=== PATIENT | female | born 1975 | race African-American/Black ===

== ENCOUNTER 2016-11-01 13:36 | Emergency (ER) | payer BC ==
[~2016-11-01] VITALS: Ht 180.3 cm; Wt 188.5 kg
[2016-11-01 14:09] LABS: HEMATOCRIT 36.5 % (36.0-46.0); MCH 28.6 PG (29.0-34.0); MCHC 32.9 G/DL (30.0-36.0); MCV 87.1 FL (83-99); MEAN PLAT.VOLUME 9.4 uM^3 (9.5-12.4); PLATELET COUNT 279 K/uL (156-360); RBC DIS.WIDTH-CV 12.4 % (11.8-14.6); RBC DIS.WIDTH-SD 39.6 % (39-53); RED BLOOD COUNT 4.19 M/uL (3.80-5.20); WHITE BLOOD COUNT 9.8 K/uL (4.1-10.2)
[2016-11-01 14:21] LABS: CHLORIDE 106 mEq/L (99-109); SODIUM 138 mEq/L (136-147)
[2016-11-01 14:23] LABS: GLUCOSE 114 mg/dL (70-99)
[2016-11-01 14:24] LABS: ANION GAP 12 MEQ/L (2-14)
[2016-11-01 14:25] LABS: TOTAL BILIRUBIN 1.3 mg/dL (0.0-1.0)
[2016-11-01 14:27] LABS: ALKALINE PHOSPHATASE 67 IU/L (3-129); GFR ESTIMATE (CALCULATED) > 59 mL/min/
[2016-11-01 14:28] LABS: LIPASE 13 U/L (1.0-51.0); UREA NITROGEN (BUN) 11 mg/dL (9-23)
[2016-11-01 14:38] LABS: QUANTITATIVE HCG < 4.0 MIU/ML
[2016-11-01 15:19] LABS: ADD MIUA? YES; BILIRUBIN NEGATIVE; BLOOD LARGE; COLOR AMBER ((YELLOW)); GLUCOSE (STRIP) NEGATIVE; KETONES 5; LEUKOCYTES MODERATE; NITRITE NEGATIVE; PROTEIN (STRIP) 100; SPECIFIC GRAVITY 1.027 (1.000-1.030); UROBILINOGEN 0.2 MG/DL (0.2-1.0)
[2016-11-01 15:56] LABS: BACTERIA 2+ /HPF; EPITHELIAL CELLS 1+ /HPF; MUCUS TRACE /LPF; RED BLOOD CELLS TNTC /HPF (0-5); WHITE BLOOD CELLS TNTC /HPF (0-5)
[2016-11-01 15:57] LABS: AMORPHOUS URATES CRYSTALS 1+; CASTS NONE SEEN /LPF; CRYSTALS PRESENT
[2016-11-01] MEDS ORDERED: KEFLEX500 MG PO (16:38)
[2016-11-01 16:57] VITALS: BP 125/98
== END 2016-11-01 16:58 | disposition home or self-care (01) ==
LOC: EME 13:36
PROVIDERS: Physician Assistant
DX: D25.9 Leiomyoma of uterus, unspecified (principal); N39.0 Urinary tract infection, site not specified; N93.9 Abnormal uterine and vaginal bleeding, unspecified; E07.9 Disorder of thyroid, unspecified; Z87.891 Personal history of nicotine dependence
CPT/HCPCS: 76856; 80053; 81003; 82550; 82553; 83690; 84702; 85027; 87086; 99281; 99284

== ENCOUNTER 2017-03-16 14:05 | Inpatient (IN) | payer BC, OTHER ==
[~2017-03-16] VITALS: Ht 180.3 cm; Wt 179.2 kg
[~2017-03-16 14:05] MED LIST: ALLOPURINOL300 MG PO; ATORVASTATIN CA10 MG PO; COMPAZINE10 MG PO; DECADRON2 MG PO; KEFLEX500 MG PO; LEVOTHYROXINE75 MCG PO; ZESTORETIC 10-1 EAC1 PO; ZOFRAN8 MG PO
[2017-03-16 14:58] LABS: HEMATOCRIT 21.6 % (36.0-46.0); HEMOGLOBIN 7.3 G/DL (11.9-15.5); IMM.RETIC FRACTION 0 % (3-19); MCHC 33.8 G/DL (30.0-36.0); MCV 88.9 FL (83-99); PLATELET COUNT 143 K/uL (156-360); RBC DIS.WIDTH-CV 17.8 % (11.8-14.6); RED BLOOD COUNT 2.43 M/uL (3.80-5.20); RETIC HGB EQUIVALENT 42.3 (28-36); RETICULOCYTE COUNT 0.3 % (0.5-1.8); WHITE BLOOD COUNT 5.1 K/uL (4.1-10.2)
[2017-03-16 15:12] LABS: CHLORIDE 103 mEq/L (99-109); POTASSIUM 3.3 mEq/L (3.7-5.4); SODIUM 137 mEq/L (136-147)
[2017-03-16 15:13] LABS: GLUCOSE 154 mg/dL (70-99)
[2017-03-16 15:17] LABS: CREATININE 1.5 mg/dL (0.6-1.3); GFR ESTIMATE (CALCULATED) 49 mL/min/
[2017-03-16 15:18] LABS: UREA NITROGEN (BUN) 21 mg/dL (9-23)
[2017-03-16 16:21] LABS: ANISOCYTOSIS 2+; BASOPHIL (%) 0.6 % (0-1); EOSINOPHIL (%) 0.4 % (0-5); HYPOCHROMASIA 1+; IMMATURE GRANULOCYTE (%) 3.3 % (0.0-0.7); LYMPHOCYTE (%) 19.6 % (15-42); MACROCYTES 1+; MICROCYTOSIS 1+; MONOCYTE (%) 0.2 % (3-12); NEUTROPHIL (%) 75.9 % (45-76); NEUTROPHIL COUNT 3.9 K/uL (1.8-6.4); TEAR DROP CELLS 1+
[2017-03-16 18:45] LABS: TROP-I INTERPRETATION NEGATIVE; TROPONIN-I 0.04 ng/mL (0.0-0.30)
[2017-03-16] MEDS ORDERED: SENNA S TABLET1 EACH PO (18:56)
[2017-03-16 20:01] VITALS: BP 77/50
[2017-03-16 20:18] VITALS: BP 81/51
[2017-03-16 21:18] VITALS: BP 106/87
[2017-03-16 21:28] VITALS: BP 106/87
[2017-03-16 21:45] VITALS: BP 113/82
[2017-03-16 22:32] VITALS: BP 129/74
[2017-03-16 23:17] LABS: THYROTROPIN (TSH) 3.2 MIU/L (0.4-5.5)
[2017-03-17] VITALS (12 sets, daily range): BP systolic 121–149; BP diastolic 76–101
[2017-03-17 00:34] LABS: APPEARANCE CLOUDY ((CLEAR)); BILIRUBIN NEGATIVE; BLOOD MODERATE; COLOR AMBER ((YELLOW)); GLUCOSE (STRIP) 50; KETONES NEGATIVE; LEUKOCYTES SMALL; NITRITE NEGATIVE; PROTEIN (STRIP) 100; SPECIFIC GRAVITY 1.019 (1.000-1.030)
[2017-03-17 01:02] LABS: WHITE BLOOD CELLS 30-40 /HPF (0-5)
[2017-03-17 01:03] LABS: BACTERIA 3+ /HPF; EPITHELIAL CELLS 2+ /HPF; HYALINE CASTS 0-5 /LPF; MUCUS 3+ /LPF; UCUL ADDED? YES
[2017-03-17 02:04] LABS: TROP-I INTERPRETATION POSITIVE
[2017-03-17 02:06] LABS: TROPONIN-I 0.62 ng/mL (0.0-0.30)
[2017-03-17 06:41] LABS: HEMATOCRIT 22.7 % (36.0-46.0); HEMOGLOBIN 7.7 G/DL (11.9-15.5); MCH 29.5 PG (29.0-34.0); MCHC 33.9 G/DL (30.0-36.0); PLATELET COUNT 104 K/uL (156-360); RBC DIS.WIDTH-CV 17.8 % (11.8-14.6); RBC DIS.WIDTH-SD 55.4 % (39-53); RED BLOOD COUNT 2.61 M/uL (3.80-5.20); WHITE BLOOD COUNT 4.2 K/uL (4.1-10.2)
[2017-03-17 07:11] LABS: CHLORIDE 107 MEQ/L (99-109); CREATININE 1.8 MG/DL (0.6-1.3); GFR ESTIMATE (CALCULATED) 40 mL/min/; SODIUM 139 MEQ/L (136-147); UREA NITROGEN (BUN) 29 mg/dL (9-23)
[2017-03-17 07:14] LABS: GLUCOSE 91 mg/dL (70-99); POTASSIUM 4.2 MEQ/L (3.7-5.4)
[2017-03-17 12:54] LABS: TROP-I INTERPRETATION POSITIVE
[2017-03-18 03:41] VITALS: BP 138/78
[2017-03-18 05:26] LABS: UR CREATININE CONCENTRATION 157.6 MG/DL
[2017-03-18 06:07] LABS: HEMATOCRIT 26.3 % (36.0-46.0); HEMOGLOBIN 8.6 G/DL (11.9-15.5); MCH 28.7 PG (29.0-34.0); MCHC 32.7 G/DL (30.0-36.0); MCV 87.7 FL (83-99); PLATELET COUNT 77 K/uL (156-360); RBC DIS.WIDTH-CV 17.2 % (11.8-14.6); RBC DIS.WIDTH-SD 53.3 % (39-53); WHITE BLOOD COUNT 2.9 K/uL (4.1-10.2)
[2017-03-18 06:22] LABS: TROP-I INTERPRETATION INDETERMINATE; TROPONIN-I 0.46 ng/mL (0.0-0.30)
[2017-03-18 06:48] LABS: CHLORIDE 109 MEQ/L (99-109); CREATININE 1.8 MG/DL (0.6-1.3); GFR ESTIMATE (CALCULATED) 40 mL/min/; GLUCOSE 94 mg/dL (70-99); MAGNESIUM 1.6 mg/dl (1.3-2.7); SODIUM 138 MEQ/L (136-147); UREA NITROGEN (BUN) 28 mg/dL (9-23); URIC ACID 9.4 mg/dL (3.1-9.2)
[2017-03-18 07:00] LABS: BASOPHIL (%) 0.7 % (0-1); EOSINOPHIL (%) 0.3 % (0-5); IMMATURE GRANULOCYTE (%) 3.5 % (0.0-0.7); LYMPHOCYTE (%) 56.3 % (15-42); LYMPHOCYTE COUNT 1.6 K/uL (1.0-2.8); MONOCYTE (%) 0.3 % (3-12); NEUTROPHIL (%) 38.9 % (45-76); NEUTROPHIL COUNT 1.1 K/uL (1.8-6.4)
[2017-03-18 07:16] VITALS: BP 137/89
[2017-03-18 11:42] VITALS: BP 177/106
[2017-03-18 19:23] VITALS: BP 131/87
[2017-03-18 23:23] VITALS: BP 128/81
[2017-03-19 04:57] VITALS: BP 131/74
[2017-03-19 05:14] LABS: HEMATOCRIT 25.1 % (36.0-46.0); HEMOGLOBIN 8.5 G/DL (11.9-15.5); MCH 29.6 PG (29.0-34.0); MCHC 33.9 G/DL (30.0-36.0); MCV 87.5 FL (83-99); RBC DIS.WIDTH-CV 16.6 % (11.8-14.6); RBC DIS.WIDTH-SD 51.8 % (39-53); RED BLOOD COUNT 2.87 M/uL (3.80-5.20)
[2017-03-19 05:15] LABS: WHITE BLOOD COUNT 1.8 K/uL (4.1-10.2)
[2017-03-19 05:21] LABS: CHLORIDE 110 mEq/L (99-109); POTASSIUM 3.9 mEq/L (3.7-5.4); SODIUM 138 mEq/L (136-147)
[2017-03-19 05:23] LABS: GLUCOSE 92 mg/dL (70-99)
[2017-03-19 05:27] LABS: CREATININE 1.9 mg/dL (0.6-1.3); GFR ESTIMATE (CALCULATED) 37 mL/min/
[2017-03-19 05:28] LABS: UREA NITROGEN (BUN) 29 mg/dL (9-23)
[2017-03-19 06:38] LABS: BASOPHIL (%) 1.1 % (0-1); EOSINOPHIL (%) 0 % (0-5); IMM.PLATELET FRACTION 1.9 (1-7); IMMATURE GRANULOCYTE (%) 0.6 % (0.0-0.7); LYMPHOCYTE (%) 85.6 % (15-42); LYMPHOCYTE COUNT 1.6 K/uL (1.0-2.8); MONOCYTE (%) 0.6 % (3-12); NEUTROPHIL (%) 12.1 % (45-76); NEUTROPHIL COUNT 0.2 K/uL (1.8-6.4); PLAT.SUFFICIENCY DECREASED
[2017-03-19 07:01] LABS: PLATELET COUNT 52 K/uL (156-360)
[2017-03-19 08:00] VITALS: BP 127/71
[2017-03-19 11:04] VITALS: BP 131/73
[2017-03-19] MEDS ORDERED: ULORIC40 MG PO (12:01)
[2017-03-19] MEDS ORDERED: CEFTRIAXONE1 G1 IV (12:01)
[2017-03-19] MEDS ORDERED: NIFEDIPINE ER30 MG PO (12:01)
[2017-03-19 14:39] LABS: HEMATOCRIT 27.6 % (36.0-46.0); HEMOGLOBIN 9.3 G/DL (11.9-15.5); MCH 29.7 PG (29.0-34.0); MCHC 33.7 G/DL (30.0-36.0); MCV 88.2 FL (83-99); PLATELET COUNT 58 K/uL (156-360); RBC DIS.WIDTH-CV 16.7 % (11.8-14.6); RBC DIS.WIDTH-SD 52.2 % (39-53); RED BLOOD COUNT 3.13 M/uL (3.80-5.20); WHITE BLOOD COUNT 2.1 K/uL (4.1-10.2)
[2017-03-19 15:53] VITALS: BP 127/81
[2017-03-19 16:09] LABS: ABS NEUTROPHIL COUNT 0.1; ANISOCYTOSIS 1+; ATYPICAL LYMPHOCYTE 12.3 %; BASOPHILS 1.8 %; EOSINOPHIL ABS CT 0; LYMPHOCYTES 78.9 % (15.0-45.0); OVALOCYTES 1+; PLAT.SUFFICIENCY VERY DECREASED
== END 2017-03-19 18:10 | disposition short-term general hospital (02) | DRG 302 ==
LOC: EME 14:05 → 4EAST 21:36 → 5EAST 21:36 → EDOF 21:36 → ENRESERV 21:38 → 5EAST 22:45 → ENRESERV 03-18 17:47 → 4EAST 03-18 19:22
PROVIDERS: Emergency Medicine Emergency Medical Services; Hospitalist; Internal Medicine Cardiovascular Disease; Internal Medicine Nephrology; Internal Medicine Pulmonary Disease; Student in an Organized Health Care Education/Training Program
PROC: 30233N1 Transfusion of Nonautologous Red Blood Cells into Peripheral Vein, Percutaneous Approach (ICD-10-PCS; principal; 2017-03-16)
DX: I51.3 Intracardiac thrombosis, not elsewhere classified (principal); I26.99 Other pulmonary embolism without acute cor pulmonale; I27.20 Pulmonary hypertension, unspecified; I82.411 Acute embolism and thrombosis of right femoral vein; I82.431 Acute embolism and thrombosis of right popliteal vein; C53.9 Malignant neoplasm of cervix uteri, unspecified; N17.9 Acute kidney failure, unspecified; C78.7 Secondary malignant neoplasm of liver and intrahepatic bile duct; C79.51 Secondary malignant neoplasm of bone; D61.818 Other pancytopenia; D64.81 Anemia due to antineoplastic chemotherapy; E66.9 Obesity, unspecified; N39.0 Urinary tract infection, site not specified; E03.9 Hypothyroidism, unspecified; E78.5 Hyperlipidemia, unspecified; Z68.43 Body mass index [BMI] 50.0-59.9, adult; I10 Essential (primary) hypertension; I95.1 Orthostatic hypotension; E86.0 Dehydration; N18.3 Chronic kidney disease, stage 3 (moderate); T45.1X5A Adverse effect of antineoplastic and immunosuppressive drugs, initial encounter; I12.9 Hypertensive chronic kidney disease with stage 1 through stage 4 chronic kidney disease, or unspecified chronic kidney disease; E87.2 Acidosis; I36.1 Nonrheumatic tricuspid (valve) insufficiency
CPT/HCPCS: 71010; 76770; 78582; 80048; 81003; 82272; 82533 91; 82570; 82948; 83735; 84156; 84443; 84484; 84550; 85025; 85025 91; 85027; 85046; 85520; 85730; 86850; 86900; 86901; 86920; 87040; 87077; 87086; 87186; 93005; 93306; 93970; 99281; 99285; A9540; A9567; J0696; J1650; J2405; J7030; J7040; P9016; S0028

== ENCOUNTER → 2017-08-13 | Outpatient (CLI) | payer BC, OTHER ==
[~2017-08-13] MED LIST changes: +CEFTRIAXONE1 G1 IV; +NIFEDIPINE ER30 MG PO; +SENNA S TABLET1 EACH PO; +ULORIC40 MG PO
== END | disposition home or self-care (01) ==
LOC: RAD 13:22
DX: C79.51 Secondary malignant neoplasm of bone (principal); R91.8 Other nonspecific abnormal finding of lung field; R59.0 Localized enlarged lymph nodes; R16.0 Hepatomegaly, not elsewhere classified; K80.20 Calculus of gallbladder without cholecystitis without obstruction
CPT/HCPCS: 71260; 74177

== ENCOUNTER 2017-10-02 12:22 | Inpatient (IN) | payer BC, OTHER ==
[~2017-10-02] VITALS: Ht 180.3 cm; Wt 140.0 kg
[~2017-10-02 12:22] MED LIST changes: +DURAGESIC12 MCG TD
[2017-10-02 13:59] LABS: ALBUMIN 3.3 g/dL (3.2-4.8); CHLORIDE 97 mEq/L (99-109)
[2017-10-02 14:00] LABS: BASOPHIL (%) 0.3 % (0-1); EOSINOPHIL (%) 2.4 % (0-5); EOSINOPHIL COUNT 0.2 K/uL (0-0.3); HEMATOCRIT 16.1 % (36.0-46.0); HEMOGLOBIN 5.2 G/DL (11.9-15.5); IMMATURE GRANULOCYTE (%) 0.5 % (0.0-0.7); LYMPHOCYTE (%) 14.5 % (15-42); LYMPHOCYTE COUNT 1.1 K/uL (1.0-2.8); MCH 30.2 PG (29.0-34.0); MCHC 32.3 G/DL (30.0-36.0); MCV 93.6 FL (83-99); MONOCYTE (%) 12.6 % (3-12); MONOCYTE COUNT 0.9 K/uL (0-0.8); NEUTROPHIL (%) 69.7 % (45-76); NEUTROPHIL COUNT 5.1 K/uL (1.8-6.4); PLATELET COUNT 277 K/uL (156-360); POTASSIUM 2.8 mEq/L (3.7-5.4); RBC DIS.WIDTH-CV 16.2 % (11.8-14.6); RBC DIS.WIDTH-SD 55.8 % (39-53); RED BLOOD COUNT 1.72 M/uL (3.80-5.20); SODIUM 130 mEq/L (136-147); WHITE BLOOD COUNT 7.4 K/uL (4.1-10.2)
[2017-10-02 14:02] LABS: GLUCOSE 113 mg/dL (70-99); TOTAL PROTEIN 8.6 g/dL (6.4-8.3)
[2017-10-02 14:04] LABS: TOTAL BILIRUBIN 1.8 mg/dL (0.0-1.0)
[2017-10-02 14:05] LABS: ALKALINE PHOSPHATASE 177 IU/L (3-129)
[2017-10-02 14:06] LABS: CREATININE 3.4 mg/dL (0.6-1.3); GFR ESTIMATE (CALCULATED) 19 mL/min/
[2017-10-02 14:07] LABS: AST (GOT) 15 IU/L (2-34); DIRECT BILIRUBIN 0.6 mg/dL (0.0-0.3); UREA NITROGEN (BUN) 29 mg/dL (9-23)
[2017-10-02 14:08] LABS: ALT (GPT) 4 IU/L (3-49)
[2017-10-02 14:11] LABS: TROP-I INTERPRETATION NEGATIVE; TROPONIN-I < 0.01 ng/mL (0.0-0.30)
[2017-10-02 15:50] LABS: APPEARANCE CLOUDY ((CLEAR)); BILIRUBIN NEGATIVE; BLOOD MODERATE; COLOR YELLOW ((YELLOW)); GLUCOSE (STRIP) NEGATIVE; KETONES NEGATIVE; LEUKOCYTES LARGE; NITRITE NEGATIVE; PROTEIN (STRIP) 100; SPECIFIC GRAVITY 1.009 (1.000-1.030); UROBILINOGEN 0.2 MG/DL (0.2-1.0)
[2017-10-02] MEDS ORDERED: MECLIZINE HCL25 MG PO (16:00)
[2017-10-02 16:24] LABS: RED BLOOD CELLS 0-5 /HPF (0-5); WHITE BLOOD CELLS TNTC /HPF (0-5)
[2017-10-02 16:26] LABS: EPITHELIAL CELLS 1+ /HPF
[2017-10-02 16:27] LABS: BACTERIA 2+ /HPF; MUCUS TRACE /LPF; UCUL ADDED? YES
[2017-10-02 16:29] LABS: AMORPHOUS URATES CRYSTALS 1+
[2017-10-02] MEDS ORDERED: CIPRO500 MG PO (17:25)
[2017-10-02] MEDS ORDERED: AMLODIPINE BESYL5 MG PO (17:25)
[2017-10-02] MEDS ORDERED: XARELTO10 MG PO (17:25)
[2017-10-02] MEDS ORDERED: SYNTHROID75 MCG PO (17:25)
[2017-10-02] MEDS ORDERED: HYDROCHLOROTH12.5 M3 PO (17:25)
[2017-10-02] MEDS ORDERED: DURAGESIC25 MCG TD (17:25)
[2017-10-02] MEDS ORDERED: TYLENOL EXTRA500 MG PO (17:26)
[2017-10-02 17:31] VITALS: BP 103/78
[2017-10-02 17:47] VITALS: BP 122/82
[2017-10-02 19:50] VITALS: BP 113/79
[2017-10-02 20:25] VITALS: BP 118/80
[2017-10-03] VITALS (7 sets, daily range): BP systolic 95–127; BP diastolic 53–81
[2017-10-03 01:55] LABS: HEMATOCRIT 21.6 % (36.0-46.0); HEMOGLOBIN 7.1 G/DL (11.9-15.5); MCV 92.7 FL (83-99)
[2017-10-03 02:55] LABS: APPEARANCE CLOUDY ((CLEAR)); BILIRUBIN NEGATIVE; BLOOD MODERATE; COLOR YELLOW ((YELLOW)); GLUCOSE (STRIP) NEGATIVE; KETONES NEGATIVE; LEUKOCYTES LARGE; NITRITE NEGATIVE; PROTEIN (STRIP) 30; UROBILINOGEN 0.2 MG/DL (0.2-1.0)
[2017-10-03 04:01] LABS: BACTERIA 2+ /HPF; EPITHELIAL CELLS RARE /HPF; MUCUS TRACE /LPF; WHITE BLOOD CELLS TNTC /HPF (0-5)
[2017-10-03 06:13] LABS: HEMATOCRIT 21.9 % (36.0-46.0); PLATELET COUNT 218 K/uL (156-360); RBC DIS.WIDTH-CV 16.4 % (11.8-14.6); RBC DIS.WIDTH-SD 56.6 % (39-53); WHITE BLOOD COUNT 4.2 K/uL (4.1-10.2)
[2017-10-03 06:23] LABS: RED BLOOD COUNT 2.33 M/uL (3.80-5.20)
[2017-10-03 08:00] LABS: CHLORIDE 100 MEQ/L (99-109); CREATININE 3.5 MG/DL (0.6-1.3); GFR ESTIMATE (CALCULATED) 18 mL/min/; GLUCOSE 103 mg/dL (70-99); POTASSIUM 3.2 MEQ/L (3.7-5.4); SODIUM 132 MEQ/L (136-147); UREA NITROGEN (BUN) 28 mg/dL (9-23)
[2017-10-03 16:59] LABS: IMM.RETIC FRACTION 15.1 % (3-19); RETICULOCYTE COUNT 2.7 % (0.5-1.8)
[2017-10-04 05:33] VITALS: BP 98/60
[2017-10-04 06:13] LABS: HEMATOCRIT 24.1 % (36.0-46.0); HEMOGLOBIN 7.5 G/DL (11.9-15.5); MCH 29.6 PG (29.0-34.0); MCHC 31.1 G/DL (30.0-36.0); MCV 95.3 FL (83-99); PLATELET COUNT 189 K/uL (156-360); RBC DIS.WIDTH-CV 16.6 % (11.8-14.6); RBC DIS.WIDTH-SD 58.6 % (39-53); RED BLOOD COUNT 2.53 M/uL (3.80-5.20); WHITE BLOOD COUNT 4.5 K/uL (4.1-10.2)
[2017-10-04 06:32] LABS: ALBUMIN 2.9 G/DL (3.2-4.8); CHLORIDE 102 MEQ/L (99-109); POTASSIUM 3.3 MEQ/L (3.7-5.4); SODIUM 134 MEQ/L (136-147)
[2017-10-04 06:38] LABS: CREATININE 3.3 MG/DL (0.6-1.3); GFR ESTIMATE (CALCULATED) 20 mL/min/; GLUCOSE 97 mg/dL (70-99); LACTATE DEHYDROGENASE 618 IU/L (20-246); PHOSPHORUS 2.9 mg/dL (2.5-4.9); UREA NITROGEN (BUN) 27 mg/dL (9-23)
[2017-10-04 07:12] VITALS: BP 123/69
[2017-10-04 07:46] LABS: FERRITIN 705 NG/ML (10-291)
[2017-10-04 15:09] VITALS: BP 113/66
[2017-10-04 15:32] VITALS: BP 113/66
[2017-10-04 16:36] VITALS: BP 125/80
[2017-10-04 17:14] VITALS: BP 122/75
[2017-10-05 00:17] VITALS: BP 111/58
[2017-10-05 06:28] LABS: HEMATOCRIT 24.3 % (36.0-46.0); HEMOGLOBIN 7.7 G/DL (11.9-15.5); MCHC 31.7 G/DL (30.0-36.0); MCV 94.6 FL (83-99); PLATELET COUNT 190 K/uL (156-360); RBC DIS.WIDTH-CV 17.5 % (11.8-14.6); RBC DIS.WIDTH-SD 60.7 % (39-53); RED BLOOD COUNT 2.57 M/uL (3.80-5.20); WHITE BLOOD COUNT 5.6 K/uL (4.1-10.2)
[2017-10-05 06:53] LABS: ALBUMIN 2.8 G/DL (3.2-4.8); CHLORIDE 105 MEQ/L (99-109); CREATININE 3.2 MG/DL (0.6-1.3); GFR ESTIMATE (CALCULATED) 20 mL/min/; GLUCOSE 102 mg/dL (70-99); PHOSPHORUS 2.9 mg/dL (2.5-4.9); POTASSIUM 3.5 MEQ/L (3.7-5.4); SODIUM 135 MEQ/L (136-147); UREA NITROGEN (BUN) 27 mg/dL (9-23)
[2017-10-05 07:06] VITALS: BP 129/77
[2017-10-05 11:17] VITALS: BP 131/74
== END 2017-10-05 17:42 | disposition home or self-care (01) | DRG 811 ==
LOC: EME 12:22 → 5EAST 16:33 → EDOF 16:33 → CANRESERV 16:49 → ENRESERV 16:49 → 5EAST 20:22
PROVIDERS: Emergency Medicine; Hospitalist; Internal Medicine; Internal Medicine Nephrology; Physician Assistant
PROC: 30233N1 Transfusion of Nonautologous Red Blood Cells into Peripheral Vein, Percutaneous Approach (ICD-10-PCS; principal; 2017-10-02)
DX: D64.81 Anemia due to antineoplastic chemotherapy (principal); N17.0 Acute kidney failure with tubular necrosis; D63.0 Anemia in neoplastic disease; E03.9 Hypothyroidism, unspecified; T45.1X5A Adverse effect of antineoplastic and immunosuppressive drugs, initial encounter; E86.0 Dehydration; C53.9 Malignant neoplasm of cervix uteri, unspecified; Z68.41 Body mass index [BMI] 40.0-44.9, adult; E87.6 Hypokalemia; N18.9 Chronic kidney disease, unspecified; I12.9 Hypertensive chronic kidney disease with stage 1 through stage 4 chronic kidney disease, or unspecified chronic kidney disease; N39.0 Urinary tract infection, site not specified; C79.9 Secondary malignant neoplasm of unspecified site; L65.8 Other specified nonscarring hair loss; E66.8 Other obesity; G62.9 Polyneuropathy, unspecified; Z79.01 Long term (current) use of anticoagulants; Z80.9 Family history of malignant neoplasm, unspecified; Z86.718 Personal history of other venous thrombosis and embolism; Y92.89 Other specified places as the place of occurrence of the external cause; I25.2 Old myocardial infarction
CPT/HCPCS: 71045; 76770; 80048; 80053; 80069; 80076; 81003; 82728; 83010 90; 83615; 83880; 84484; 85014; 85018; 85025; 85027; 85046; 86850; 86870; 86900; 86901; 86905; 86920; 86999; 87040; 87086; 93306; 99281; 99285; J0696; J1940; J2997; J3370; J3475; J3480; J7030; P9016

== ENCOUNTER → 2017-10-20 | Outpatient (CLI) | payer BC, OTHER ==
[~2017-10-20] VITALS: Ht 180.3 cm; Wt 141.0 kg
[2017-10-20] VITALS (7 sets, daily range): BP systolic 99–116; BP diastolic 62–75
[~2017-10-20] MED LIST changes: +AMLODIPINE BESYL5 MG PO; +CIPRO500 MG PO; +DURAGESIC25 MCG TD; +HYDROCHLOROTH12.5 M3 PO; +K-DUR20 MEQ PO; +MECLIZINE HCL25 MG PO; +OXYCODONE HCL10 MG PO; +PREDNISONE5 MG PO; +PRILOSEC OTC20 MG PO; +SYNTHROID75 MCG PO; +TYLENOL EXTRA500 MG PO; +XARELTO10 MG PO
== END | disposition home or self-care (01) ==
LOC: IVINF 08:18
DX: D64.9 Anemia, unspecified (principal)
CPT/HCPCS: 36430; 86920; 86999; P9016